=== PATIENT | male | born 1945 | race Caucasian/White ===

== ENCOUNTER → 2018-05-13 | Outpatient (CLI) | payer OTHER | END | disposition home or self-care (01) | LOC: CFH 12:49 | PROVIDERS: ATTEND Radiology Diagnostic Radiology | DX: R92.2 Inconclusive mammogram (principal) | CPT/HCPCS: 76642; 77066 ==

== ENCOUNTER → 2021-03-04 | Outpatient (CLI) | payer OTHER | END | disposition home or self-care (01) | LOC: RAD 13:11 | PROVIDERS: ATTEND Chiropractor | DX: R06.02 Shortness of breath (principal) | CPT/HCPCS: 71046 ==